=== PATIENT | male | born 1965 | race Two or more races ===

== ENCOUNTER 2024-11-24 05:10 | Day surgery (SDC) | payer OTHER ==
[2024-11-22 12:17] VITALS: BP 129/84
[~2024-11-24] VITALS: Ht 170.2 cm; Wt 90.7 kg
[~2024-11-24 05:10] MED LIST: FENOFIBRATE150 MG PO; ROSUVASTATIN CA20 MG PO
[2024-11-24] MEDS ORDERED: CEFAZOLIN SODIUM 1,000 MG VIAL ONE (07:20)
== END 2024-11-24 11:20 | disposition home or self-care (01) ==
LOC: CIR.AMB 05:10
PROVIDERS: ATTEND Surgery Surgery of the Hand
DX: M67.844 Other specified disorders of tendon, left hand (principal); J45.909 Unspecified asthma, uncomplicated; Z88.6 Allergy status to analgesic agent